=== PATIENT | female | born 1985 | race Caucasian/White ===

== ENCOUNTER 2017-01-03 20:29 | Emergency (ER) | payer SELFPAY ==
[~2017-01-03] VITALS: Ht 167.6 cm; Wt 77.1 kg
[~2017-01-03 20:29] MED LIST: AMOXICILLIN500 MG PO; BACTRIM DS 8001 TA1 PO; CLINDAMYCIN150 MG PO; FERROUS SULFATE1 GRA PO; FLEXERIL10 MG PO; FLONASE 0.05% 121 EA NAS; HYDROCODONE BIT1 T11 PO; KEFLEX500 MG; KEFLEX500 MG PO; MOTRIN800 MG PO; NAPROSYN500 MG PO; NKHM; ORTHO TRI-CYCLE1 TA1 PO; PRENATA1 CTB PO; PRENATAL1 TA1 PO; PRILOSEC40 MG PO; Percocet 325 MG1 TAB PO; ROBAXIN500 MG PO; VICODIN 5/500 505 MG PO; ZOFRAN ODT4 MG SL; ZYRTEC10 MG PO; [UNRECOGNIZED DRUG - OTHER] PO
[2017-01-03] MEDS ORDERED: ZOFRAN ODT4 MG SL (23:12)
== END 2017-01-03 23:42 | disposition home or self-care (01) ==
LOC: ED 20:29
DX: B34.9 Viral infection, unspecified (principal); Z98.51 Tubal ligation status; Z79.899 Other long term (current) drug therapy

== ENCOUNTER 2017-06-02 08:53 | Emergency (ER) | payer OTHER ==
[~2017-06-02] VITALS: Wt 68.0 kg
[2017-06-02 09:32] LABS: BASO # 0.1 10*3/uL (0.0-0.1); BASO % 0.7 % (0.0-1.0); EOS # 0.4 10*3/uL (0.0-0.4); HEMOGLOBIN 10.2 g/dl (12.0-16.0); LYMPH # 2.3 10*3/uL (1.3-4.4); LYMPH % 32.4 % (27.0-41.0); MEAN CELL VOLUME 74.2 fl (81.0-99.0); MEAN CORPUSCULAR HGB 22.9 pg (27.0-31.0); MEAN CORPUSCULAR HGB CONC 30.9 g/dl (33.0-37.0); MEAN PLATELET VOLUME 10.2 fl (9.6-12.3); MONO # 0.3 10*3/uL (0.1-1.0); MONO % 4.1 % (3.0-9.0); NEUT % 56.5 % (47.0-73.0); PLATELET COUNT AUTOMATED 261 10*3/uL (130-400); RED BLOOD COUNT 4.45 10*6/uL (4.10-5.10); RED CELL DISTRI WIDTH 15.8 % (0-14.5); WHITE BLOOD COUNT 7.1 10*3/uL (4.8-10.8)
[2017-06-02 09:46] LABS: ALBUMIN 3.2 gm/dl (3.1-4.5); ALKALINE PHOSPHATASE 102 U/L (45-117); BUN 5 mg/dl (7-24); CREATININE 0.61 mg/dL (0.55-1.02); LIPASE 108 U/L (73-393); SGOT/AST 22 IU/L (3-35); SGPT/ALT 19 U/L (12-78); TOTAL PROTEIN 7.3 gm/dL (6.4-8.2)
[2017-06-02 09:55] LABS: CHLORIDE 107 mmol/L (98-107); POTASSIUM 3.9 mmol/L (3.5-5.1); SODIUM 142 mmol/L (136-145)
== END 2017-06-02 13:04 | disposition home or self-care (01) ==
LOC: ED 08:53
PROVIDERS: Physician Assistant
DX: R51 Headache (principal); M54.2 Cervicalgia; R10.13 Epigastric pain

== ENCOUNTER 2017-11-02 08:12 | Emergency (ER) | payer SELFPAY ==
[~2017-11-02] VITALS: Wt 91.6 kg
[2017-11-02] MEDS ORDERED: NAPROSYN500 MG PO (09:20)
[2017-11-02] MEDS ORDERED: AMOXICILLIN500 M2 PO (09:20)
== END 2017-11-02 09:24 | disposition home or self-care (01) ==
LOC: ED 08:12
DX: J32.1 Chronic frontal sinusitis (principal); J32.0 Chronic maxillary sinusitis; Z98.51 Tubal ligation status

== ENCOUNTER 2017-11-19 20:30 | Emergency (ER) | payer SELFPAY ==
[~2017-11-19] VITALS: Ht 162.5 cm; Wt 81.6 kg
[~2017-11-19 20:30] MED LIST changes: +AMOXICILLIN500 M2 PO
[2017-11-19] MEDS ORDERED: IBUPROFEN600 MG PO (21:39)
== END 2017-11-19 23:38 | disposition home or self-care (01) ==
LOC: ED 20:30
DX: S00.83XA Contusion of other part of head, initial encounter (principal); S10.83XA Contusion of other specified part of neck, initial encounter; S09.90XA Unspecified injury of head, initial encounter; F17.200 Nicotine dependence, unspecified, uncomplicated; Z98.51 Tubal ligation status; Y04.0XXA Assault by unarmed brawl or fight, initial encounter; Y93.89 Activity, other specified; Y92.89 Other specified places as the place of occurrence of the external cause; Y99.9 Unspecified external cause status

== ENCOUNTER 2018-08-14 13:22 | Emergency (ER) | payer OTHER ==
[~2018-08-14] VITALS: Ht 162.5 cm; Wt 77.1 kg
[~2018-08-14 13:22] MED LIST changes: +IBUPROFEN600 MG PO
[2018-08-14] MEDS ORDERED: AMOXICILLIN500 M2 PO (14:50)
[2018-08-14] MEDS ORDERED: TESSALON PERLE100 M1 PO (14:50)
[2018-08-14] MEDS ORDERED: PREDNISONE20 M1 PO (14:50)
== END 2018-08-14 14:59 | disposition home or self-care (01) ==
LOC: ED 13:22
DX: J20.9 Acute bronchitis, unspecified (principal); Z79.899 Other long term (current) drug therapy

== ENCOUNTER 2018-11-07 12:28 | Emergency (ER) | payer OTHER ==
[~2018-11-07] VITALS: Ht 162.5 cm; Wt 86.2 kg
[~2018-11-07 12:28] MED LIST changes: +PREDNISONE20 M1 PO; +TESSALON PERLE100 M1 PO
[2018-11-07] MEDS ORDERED: Motrin,Rufen800 MG PO (15:30)
== END 2018-11-07 15:15 | disposition home or self-care (01) ==
LOC: ED 12:28
DX: S60.051A Contusion of right little finger without damage to nail, initial encounter (principal); W20.8XXA Other cause of strike by thrown, projected or falling object, initial encounter; Y93.89 Activity, other specified; Y92.69 Other specified industrial and construction area as the place of occurrence of the external cause; Y99.9 Unspecified external cause status

== ENCOUNTER 2019-06-03 14:55 | Emergency (ER) | payer OTHER ==
[~2019-06-03] VITALS: Ht 162.5 cm; Wt 78.0 kg
[~2019-06-03 14:55] MED LIST changes: +Motrin,Rufen800 MG PO
== END 2019-06-03 17:25 | disposition home or self-care (01) ==
LOC: ED 14:55
DX: R51 Headache (principal); Z79.899 Other long term (current) drug therapy

== ENCOUNTER 2021-05-01 14:25 | Emergency (ER) | payer OTHER ==
[~2021-05-01] VITALS: Ht 167.6 cm; Wt 68.9 kg
== END 2021-05-01 21:00 | disposition left against medical advice (07) ==
LOC: ED 14:25
DX: R22.0 Localized swelling, mass and lump, head (principal); Z53.21 Procedure and treatment not carried out due to patient leaving prior to being seen by health care provider

== ENCOUNTER 2021-08-16 07:40 | Emergency (ER) | payer OTHER ==
[~2021-08-16] VITALS: Ht 167.6 cm; Wt 71.7 kg
[2021-08-16 11:27] LABS: BASO % 0.3 % (0.0-1.0); HEMATOCRIT 31.4 % (37.0-47.0); LYMPH # 0.7 10*3/uL (1.3-4.4); LYMPH % 23.8 % (27.0-41.0); MEAN CELL VOLUME 73.4 fl (81.0-99.0); MEAN CORPUSCULAR HGB 22.2 pg (27.0-31.0); MEAN CORPUSCULAR HGB CONC 30.3 g/dl (33.0-37.0); MEAN PLATELET VOLUME 9.6 fl (9.6-12.3); MONO # 0.4 10*3/uL (0.1-1.0); MONO % 13.7 % (3.0-9.0); NEUT # 1.9 10*3/uL (2.3-7.9); NEUT % 62.2 % (47.0-73.0); PLATELET COUNT AUTOMATED 226 10*3/uL (130-400); RED BLOOD COUNT 4.28 10*6/uL (4.10-5.10); WHITE BLOOD COUNT 3.1 10*3/uL (4.8-10.8)
[2021-08-16 11:44] LABS: ALBUMIN 3.3 gm/dl (3.1-4.5); ALKALINE PHOSPHATASE 70 U/L (45-117); BUN 4 mg/dl (7-24); CHLORIDE 110 mmol/L (98-107); LIPASE 67 U/L (73-393); POTASSIUM 3.7 mmol/L (3.5-5.1); SGOT/AST 10 IU/L (3-35); SGPT/ALT 17 U/L (12-78); SODIUM 139 mmol/L (136-145); TOTAL PROTEIN 6.9 gm/dL (6.4-8.2)
[2021-08-16 11:55] LABS: BETA-HCG, QUANT < 1.0 mIU/mL (1-3)
[2021-08-16] MEDS ORDERED: Motrin,Rufen800 MG PO (17:48)
== END 2021-08-16 18:06 | disposition home or self-care (01) ==
LOC: ED 07:40
PROVIDERS: Emergency Medicine
DX: U07.1 COVID-19 (principal); B34.9 Viral infection, unspecified

== ENCOUNTER 2023-09-11 08:14 | Emergency (ER) | payer SELFPAY ==
[~2023-09-11] VITALS: Ht 162.5 cm; Wt 81.6 kg
[2023-09-11] MEDS ORDERED: ONDANSETRON4 MG SL (10:58)
[2023-09-11] MEDS ORDERED: AMOXICILLIN875 MG PO (10:58)
== END 2023-09-11 11:10 | disposition home or self-care (01) ==
LOC: ED 08:14
DX: B34.9 Viral infection, unspecified (principal); Z20.822 Contact with and (suspected) exposure to COVID-19; J02.9 Acute pharyngitis, unspecified; Z98.890 Other specified postprocedural states

== ENCOUNTER → 2024-04-18 | Outpatient (CLI) | payer MEDICAID ==
[~2024-04-18] MED LIST changes: +AMOXICILLIN875 MG PO; +ONDANSETRON4 MG SL
== END | disposition home or self-care (01) ==
LOC: US 16:00
PROVIDERS: ATTEND Nurse Practitioner Women's Health
DX: R93.89 Abnormal findings on diagnostic imaging of other specified body structures (principal); N92.1 Excessive and frequent menstruation with irregular cycle

== ENCOUNTER 2024-10-09 12:29 | Emergency (ER) | payer MEDICAID ==
[~2024-10-09] VITALS: Ht 162.5 cm; Wt 86.2 kg
[2024-10-09 13:20] LABS: BASO # 0.1 10*3/uL (0.0-0.1); BASO % 0.7 % (0.0-1.0); EOS # 0.4 10*3/uL (0.0-0.4); EOS % 5.9 % (1.0-4.0); HEMATOCRIT 35.9 % (37.0-47.0); MEAN CELL VOLUME 81.8 fl (81.0-99.0); MEAN CORPUSCULAR HGB 26.2 pg (27.0-31.0); MEAN PLATELET VOLUME 9.5 fl (9.6-12.3); MONO # 0.4 10*3/uL (0.1-1.0); MONO % 5.8 % (3.0-9.0); NEUT # 4.6 10*3/uL (2.3-7.9); NEUT % 64.1 % (47.0-73.0); PLATELET COUNT AUTOMATED 270 10*3/uL (130-400); RED BLOOD COUNT 4.39 10*6/uL (4.10-5.10); RED CELL DISTRI WIDTH 13.5 % (0-14.5); WHITE BLOOD COUNT 7.2 10*3/uL (4.8-10.8)
[2024-10-09 13:40] LABS: BUN 6 mg/dl (9-23); CHLORIDE 105 mmol/L (98-107); POTASSIUM 3.9 mmol/L (3.4-5.1)
[2024-10-09] MEDS ORDERED: PREDNISONE20 M1 PO (14:28)
[2024-10-09] MEDS ORDERED: AVPAK AZITHROM250 M1 PO (14:28)
[2024-10-09] MEDS ORDERED: AZITHROMYCIN 250 MG TAB PO ONE (14:30)
[2024-10-09] MEDS ORDERED: methylPREDNISolone sod succ 125 MG VIAL IM ONE (14:30)
== END 2024-10-09 15:03 | disposition home or self-care (01) ==
LOC: ED 12:29
PROVIDERS: Nurse Practitioner Family
DX: M94.0 Chondrocostal junction syndrome [Tietze] (principal); J18.9 Pneumonia, unspecified organism

== ENCOUNTER 2025-07-11 20:32 | Emergency (ER) | payer SELFPAY ==
[~2025-07-11] VITALS: Ht 162.5 cm; Wt 88.5 kg
[~2025-07-11 20:32] MED LIST changes: +AVPAK AZITHROM250 M1 PO
[2025-07-11] MEDS ORDERED: FLUOXETINE HCL10 MG PO (20:40)
[2025-07-11] MEDS ORDERED: diphenhydrAMINE hydrochloride 50 MG/ML VIAL IV ONE (20:50)
[2025-07-11] MEDS ORDERED: Metoclopramide Hydrochloride 10 MG/2 ML VIAL IV ONE (20:50)
[2025-07-11] MEDS ORDERED: SODIUM CHLORIDE 0.9% 1,000 ML IV ONE (20:50)
[2025-07-11 21:12] LABS: BASO # 0.0 10*3/uL (0.0-0.1); BASO % 0.5 % (0.0-1.0); EOS # 0.0 10*3/uL (0.0-0.4); EOS % 0.2 % (1.0-4.0); MEAN CELL VOLUME 83.8 fl (81.0-99.0); MEAN CORPUSCULAR HGB 26.2 pg (27.0-31.0); MEAN PLATELET VOLUME 9.8 fl (9.6-12.3); MONO # 0.3 10*3/uL (0.1-1.0); MONO % 5.8 % (3.0-9.0); NEUT # 4.6 10*3/uL (2.3-7.9); NEUT % 78.5 % (47.0-73.0); NUCLEATED RED BLOOD CELL 0.0 % (0.0-0.0); NUCLEATED RED BLOOD CELL 0.0 10*3/uL (0.0-0.0); PLATELET COUNT AUTOMATED 267 10*3/uL (130-400); RED CELL DISTRI WIDTH 14.0 % (0-14.5)
[2025-07-11 21:52] LABS: BUN 6 mg/dl (9-23); SGPT/ALT 11 U/L (5-49)
[2025-07-11 22:39] LABS: BILIRUBIN Negative (Negative); BLOOD Negative (Negative); CLARITY Cloudy (Clear); COLOR Dark Yellow (Yellow); KETONE 3+ (Negative); LEUKO ESTERASE 2+ (Negative); NITRITE Negative (Negative); PH 6.5 (4.5-8.0); SPECIFIC GRAVITY >= 1.030 (1.001-1.030); UROBILINOGEN 1.0 E.U./dl (0.0-1.0)
[2025-07-11] MEDS ORDERED: Ondansetron4 MG PO (22:50)
[2025-07-11] MEDS ORDERED: SEPTDS PO (22:50)
[2025-07-11 22:54] LABS: BACTERIA 2+; EPITHELIAL CELLS 16-20; WBC 41-50 wbc/hpf (0-5)
== END 2025-07-12 00:07 | disposition home or self-care (01) ==
LOC: ED 20:32
PROVIDERS: Nurse Practitioner Family
DX: N30.00 Acute cystitis without hematuria (principal); R50.9 Fever, unspecified; R51.9 Headache, unspecified; R11.2 Nausea with vomiting, unspecified; Z20.822 Contact with and (suspected) exposure to COVID-19